=== PATIENT | male | born 1950 | race Caucasian/White ===

== ENCOUNTER 2017-05-09 12:45 | Inpatient (IN) | payer MEDICARE ==
[~2017-05-09] VITALS: Ht 188 cm; Wt 108.2 kg
[2017-05-09] MEDS ORDERED: TIMO5DRO5 OP (13:16)
[2017-05-09] MEDS ORDERED: LISI5TAB7 PO (13:16)
[2017-05-09] MEDS ORDERED: TAMS-11 PO (13:16)
[2017-05-09] MEDS ORDERED: PANT40TA3 PO (13:16)
[2017-05-09] MEDS ORDERED: GATI3.5D2 OP (13:19)
[2017-05-09 13:21] LABS: HEMATOCRIT 34.6 % (39.2-51.8); HEMOGLOBIN 11.9 g/dL (13.7-18.0)
[2017-05-09] MEDS ORDERED: DOCUSATE 100 MG CAPSULE PO PRN (13:30)
[2017-05-09] MEDS ORDERED: PANTOPRAZOLE 80 MG in SODIUM CHLORIDE 0.9% 100 ML IV SCH (13:30)
[2017-05-09] MEDS ORDERED: POLYETHYLENE GLYCOL 17 GM PACKET PO PRN (13:30)
[2017-05-09] MEDS ORDERED: morphine SULFATE 10 MG/ML, 1ML IVPush PRN (13:30)
[2017-05-09] MEDS ORDERED: PANTOPRAZOLE 80 MG in SODIUM CHLORIDE 0.9% 50 ML IV ONE (16:30)
[2017-05-09] MEDS: NS + 20MEQ KCL 1,000 ML IV SCH (16:33)
[2017-05-09 16:34] VITALS: BP 117/80
[2017-05-09] MEDS: SUCRALFATE 1 GM TABLET PO SCH ×2 (17:16→22:55)
[2017-05-09 18:54] VITALS: BP 114/79
[2017-05-09] MEDS: GATIFLOXACIN OP SCH (21:00)
[2017-05-09] MEDS: [UNRECOGNIZED DRUG - OTHER] OP SCH (21:00)
[2017-05-09] MEDS: PREDNISOLONE OP SCH (21:00)
[2017-05-09] MEDS ORDERED: SODIUM CHLORIDE 0.9%, 500ML IVBOLUS ONE (23:00)
[2017-05-09] MEDS: PANTOPRAZOLE 80 MG in SODIUM CHLORIDE 0.9% 100 ML IV SCH (23:34)
[2017-05-10] VITALS (14 sets, daily range): BP systolic 59–148; BP diastolic 42–85
[2017-05-10 04:57] LABS: BLOOD UREA NITROGEN 45 mg/dL (7-18)
[2017-05-10 05:04] LABS: HEMATOCRIT 23.3 % (39.2-51.8); WHITE BLOOD COUNT 14.5 x10^3/uL (3.4-10)
[2017-05-10 05:05] LABS: IS PT STATUS REG ER OR PRE ER? NO
[2017-05-10] MEDS: NS + 20MEQ KCL 1,000 ML IV SCH (06:46)
[2017-05-10] MEDS: SUCRALFATE 1 GM TABLET PO SCH ×4 (07:45→21:00)
[2017-05-10] MEDS: LISINOPRIL 5 MG TABLET PO SCH (07:46)
[2017-05-10] MEDS: TAMSULOSIN 0.4 MG CAP.ER.24H PO SCH (07:46)
[2017-05-10] MEDS: PANTOPRAZOLE 80 MG in SODIUM CHLORIDE 0.9% 100 ML IV SCH ×2 (07:46→18:13)
[2017-05-10] MEDS: GATIFLOXACIN OP SCH ×2 (07:49→21:00)
[2017-05-10] MEDS: PREDNISOLONE OP SCH ×2 (07:49→21:00)
[2017-05-10] MEDS: [UNRECOGNIZED DRUG - OTHER] OP SCH ×2 (07:49→21:00)
[2017-05-10] MEDS: TIMOLOL OPHTH 0.5%, 5ML OP SCH (09:00)
[2017-05-10] MEDS ORDERED: PANTOPROZOLE 40MG TABLET PO SCH (09:00)
[2017-05-10] MEDS ORDERED: MIDAZOLAM 1 MG/ML, 5ML ONE ×2 (10:08)
[2017-05-10] MEDS ORDERED: FENTANYL PF 100 MCG/2ML ONE ×2 (10:08→10:09)
[2017-05-10 17:49] LABS: HEMATOCRIT 25.3 % (39.2-51.8); HEMOGLOBIN 8.4 g/dL (13.7-18.0); WHITE BLOOD COUNT 20.7 x10^3/uL (3.4-10)
[2017-05-10 18:10] LABS: ANISOCYTOSIS 1+
[2017-05-10 18:11] LABS: HYPOCHROMIA 1+; POLYCHROMASIA 1+
[2017-05-10 21:09] LABS: HEMOGLOBIN 7.8 g/dL (13.7-18.0)
[2017-05-10 21:18] LABS: HEMATOCRIT 22.3 % (39.2-51.8)
[2017-05-10] MEDS: ONDANSETRON 2MG/ML, 2ML IVPush PRN (22:40)
[2017-05-11] VITALS (12 sets, daily range): BP systolic 91–116; BP diastolic 60–74
[2017-05-11] MEDS: PANTOPRAZOLE 80 MG in SODIUM CHLORIDE 0.9% 100 ML IV SCH ×2 (04:24→15:22)
[2017-05-11] MEDS: ACETAMINOPHEN 325 MG TABLET PO PRN ×2 (04:36→18:29)
[2017-05-11 04:54] LABS: WHITE BLOOD COUNT 23.3 x10^3/uL (3.4-10)
[2017-05-11 05:01] LABS: HEMATOCRIT 17.9 % (39.2-51.8); HEMOGLOBIN 6.3 g/dL (13.7-18.0)
[2017-05-11 05:46] LABS: ASPARTATE AMINO TRANSFERASE 10 U/L (15-37); BLOOD UREA NITROGEN 59 mg/dL (7-18)
[2017-05-11 05:51] LABS: DIFF TOTAL CELLS COUNTED 200 CELL DIFF; VERIFY COUNTS? YES
[2017-05-11 05:52] LABS: ANISOCYTOSIS 1+
[2017-05-11 05:53] LABS: POLYCHROMASIA 2+
[2017-05-11] MEDS ORDERED: PANTOPRAZOLE 80 MG in SODIUM CHLORIDE 0.9% 50 ML IV ONE (09:00)
[2017-05-11] MEDS: GATIFLOXACIN OP SCH ×2 (09:00→20:19)
[2017-05-11] MEDS: [UNRECOGNIZED DRUG - OTHER] OP SCH ×2 (09:00→20:19)
[2017-05-11] MEDS: PREDNISOLONE OP SCH ×2 (09:00→20:19)
[2017-05-11] MEDS: TAMSULOSIN 0.4 MG CAP.ER.24H PO SCH (10:41)
[2017-05-11] MEDS: SUCRALFATE 1 GM TABLET PO SCH ×4 (10:41→20:19)
[2017-05-11] MEDS: LISINOPRIL 5 MG TABLET PO SCH (10:41)
[2017-05-11] MEDS: TIMOLOL OPHTH 0.5%, 5ML OP SCH (10:57)
[2017-05-11 13:25] LABS: HEMATOCRIT 23.4 % (39.2-51.8); HEMOGLOBIN 8.1 g/dL (13.7-18.0)
[2017-05-11 16:13] LABS: HEMATOCRIT 23.8 % (39.2-51.8); HEMOGLOBIN 8.1 g/dL (13.7-18.0)
[2017-05-11 21:15] LABS: HEMOGLOBIN 7.4 g/dL (13.7-18.0)
[2017-05-11 21:19] LABS: HEMATOCRIT 21.2 % (39.2-51.8)
[2017-05-12] VITALS (15 sets, daily range): BP systolic 97–131; BP diastolic 57–76
[2017-05-12] MEDS: PANTOPRAZOLE 80 MG in SODIUM CHLORIDE 0.9% 100 ML IV SCH ×3 (01:07→22:22)
[2017-05-12 03:20] LABS: HEMATOCRIT 19.6 % (39.2-51.8); HEMOGLOBIN 6.5 g/dL (13.7-18.0)
[2017-05-12] MEDS: HYDROcodone/APAP 5/325 TABLET PO PRN ×2 (04:32→19:51)
[2017-05-12] MEDS: SUCRALFATE 1 GM TABLET PO SCH ×4 (07:00→19:51)
[2017-05-12] MEDS: PREDNISOLONE OP SCH ×2 (09:00→19:51)
[2017-05-12] MEDS: GATIFLOXACIN OP SCH ×2 (09:00→19:51)
[2017-05-12] MEDS: [UNRECOGNIZED DRUG - OTHER] OP SCH ×2 (09:00→19:51)
[2017-05-12] MEDS ORDERED: MIDAZOLAM 1 MG/ML, 5ML ONE (09:11)
[2017-05-12] MEDS ORDERED: FENTANYL PF 100 MCG/2ML ONE (09:11)
[2017-05-12] MEDS: TIMOLOL OPHTH 0.5%, 5ML OP SCH (10:33)
[2017-05-12] MEDS: LISINOPRIL 5 MG TABLET PO SCH (10:34)
[2017-05-12] MEDS: TAMSULOSIN 0.4 MG CAP.ER.24H PO SCH (10:34)
[2017-05-12 12:49] LABS: HEMATOCRIT 23.7 % (39.2-51.8); HEMOGLOBIN 8.1 g/dL (13.7-18.0)
[2017-05-12 16:41] LABS: HEMOGLOBIN 7.5 g/dL (13.7-18.0)
[2017-05-12 16:45] LABS: HEMATOCRIT 22.5 % (39.2-51.8)
[2017-05-12 21:06] LABS: HEMATOCRIT 24.8 % (39.2-51.8); HEMOGLOBIN 8.6 g/dL (13.7-18.0)
[2017-05-12] MEDS: ONDANSETRON 2MG/ML, 2ML IVPush PRN (23:42)
[2017-05-13 03:50] VITALS: BP 111/73
[2017-05-13] MEDS: HYDROcodone/APAP 5/325 TABLET PO PRN (03:59)
[2017-05-13 06:07] LABS: HEMATOCRIT 24.2 % (39.2-51.8); HEMOGLOBIN 8.3 g/dL (13.7-18.0); WHITE BLOOD COUNT 9.6 x10^3/uL (3.4-10)
[2017-05-13 06:26] LABS: DIFF TOTAL CELLS COUNTED 100 CELL DIFF
[2017-05-13 06:28] LABS: ANISOCYTOSIS 1+; POLYCHROMASIA 2+; VERIFY COUNTS? YES
[2017-05-13 06:41] LABS: BLOOD UREA NITROGEN 21 mg/dL (7-18)
[2017-05-13 06:49] VITALS: BP 98/62
[2017-05-13] MEDS: TIMOLOL OPHTH 0.5%, 5ML OP SCH (08:06)
[2017-05-13] MEDS: PANTOPRAZOLE 80 MG in SODIUM CHLORIDE 0.9% 100 ML IV SCH ×2 (08:06→21:13)
[2017-05-13] MEDS: TAMSULOSIN 0.4 MG CAP.ER.24H PO SCH (08:07)
[2017-05-13] MEDS: LISINOPRIL 5 MG TABLET PO SCH (08:07)
[2017-05-13] MEDS: SUCRALFATE 1 GM TABLET PO SCH ×4 (08:07→20:30)
[2017-05-13] MEDS: GATIFLOXACIN OP SCH ×2 (08:08→20:31)
[2017-05-13] MEDS: [UNRECOGNIZED DRUG - OTHER] OP SCH ×2 (08:08→20:31)
[2017-05-13] MEDS: PREDNISOLONE OP SCH ×2 (08:08→20:31)
[2017-05-13 09:56] VITALS: BP 109/65
[2017-05-13 11:19] LABS: HEMATOCRIT 25.6 % (39.2-51.8); HEMOGLOBIN 8.7 g/dL (13.7-18.0)
[2017-05-13 13:25] LABS: IS PT STATUS REG ER OR PRE ER? NO
[2017-05-13 14:33] VITALS: BP 112/72
[2017-05-13 16:37] LABS: HEMATOCRIT 26.2 % (39.2-51.8); HEMOGLOBIN 8.8 g/dL (13.7-18.0)
[2017-05-13 18:53] VITALS: BP 116/66
[2017-05-13 19:23] LABS: IS PT STATUS REG ER OR PRE ER? NO
[2017-05-13 21:22] LABS: HEMATOCRIT 25.1 % (39.2-51.8); HEMOGLOBIN 8.5 g/dL (13.7-18.0)
[2017-05-13] MEDS: ACETAMINOPHEN 325 MG TABLET PO PRN (23:13)
[2017-05-13 23:37] LABS: IS PT STATUS REG ER OR PRE ER? NO
[2017-05-14 01:16] VITALS: BP 148/77
[2017-05-14 06:16] LABS: HEMATOCRIT 25.3 % (39.2-51.8); HEMOGLOBIN 8.6 g/dL (13.7-18.0); WHITE BLOOD COUNT 7.5 x10^3/uL (3.4-10)
[2017-05-14 06:50] LABS: BLOOD UREA NITROGEN 18 mg/dL (7-18)
[2017-05-14] MEDS: PREDNISOLONE OP SCH ×2 (07:34→20:06)
[2017-05-14] MEDS: SUCRALFATE 1 GM TABLET PO SCH ×4 (07:34→20:05)
[2017-05-14] MEDS: [UNRECOGNIZED DRUG - OTHER] OP SCH ×2 (07:34→20:06)
[2017-05-14] MEDS: LISINOPRIL 5 MG TABLET PO SCH (07:34)
[2017-05-14] MEDS: GATIFLOXACIN OP SCH ×2 (07:34→20:06)
[2017-05-14] MEDS: TAMSULOSIN 0.4 MG CAP.ER.24H PO SCH (07:34)
[2017-05-14] MEDS: TIMOLOL OPHTH 0.5%, 5ML OP SCH (07:35)
[2017-05-14] MEDS: PANTOPRAZOLE 80 MG in SODIUM CHLORIDE 0.9% 100 ML IV SCH (07:36)
[2017-05-14 08:22] VITALS: BP 126/82
[2017-05-14 11:05] LABS: HEMATOCRIT 28.9 % (39.2-51.8); HEMOGLOBIN 9.7 g/dL (13.7-18.0)
[2017-05-14 13:21] VITALS: BP 121/72
[2017-05-14 16:33] LABS: HEMOGLOBIN 9.6 g/dL (13.7-18.0)
[2017-05-14] MEDS: OMEPRAZOLE 20 MG CAPSULE.DR PO SCH (16:42)
[2017-05-14 19:46] VITALS: BP 139/66
[2017-05-14 21:43] LABS: HEMATOCRIT 28.5 % (39.2-51.8); HEMOGLOBIN 9.6 g/dL (13.7-18.0)
[2017-05-15 01:19] VITALS: BP 134/87
[2017-05-15] MEDS: ACETAMINOPHEN 325 MG TABLET PO PRN ×2 (01:27→23:03)
[2017-05-15 05:38] LABS: HEMATOCRIT 25.9 % (39.2-51.8); HEMOGLOBIN 8.9 g/dL (13.7-18.0); WHITE BLOOD COUNT 7.1 x10^3/uL (3.4-10)
[2017-05-15 05:46] LABS: BLOOD UREA NITROGEN 15 mg/dL (7-18)
[2017-05-15 07:33] VITALS: BP 122/74
[2017-05-15] MEDS: SUCRALFATE 1 GM TABLET PO SCH ×4 (07:55→20:19)
[2017-05-15] MEDS: OMEPRAZOLE 20 MG CAPSULE.DR PO SCH ×2 (07:55→16:38)
[2017-05-15] MEDS: GATIFLOXACIN OP SCH ×2 (09:00→20:19)
[2017-05-15] MEDS: PREDNISOLONE OP SCH ×2 (09:00→20:19)
[2017-05-15] MEDS: [UNRECOGNIZED DRUG - OTHER] OP SCH ×2 (09:00→20:19)
[2017-05-15] MEDS: TAMSULOSIN 0.4 MG CAP.ER.24H PO SCH (09:19)
[2017-05-15] MEDS: LISINOPRIL 5 MG TABLET PO SCH (09:19)
[2017-05-15] MEDS: TIMOLOL OPHTH 0.5%, 5ML OP SCH (09:20)
[2017-05-15 12:26] VITALS: BP 137/88
[2017-05-15 12:41] LABS: HEMATOCRIT 29.8 % (39.2-51.8); HEMOGLOBIN 10.1 g/dL (13.7-18.0)
[2017-05-15] MEDS: OPIUM/BELLADONNA SUPP.RECT 16.2-30 MG PR PRN ×2 (13:03→18:31)
[2017-05-15] MEDS: HYDROCORTISONE 25 MG SUPP PR SCH ×2 (14:41→21:02)
[2017-05-15 18:04] LABS: HEMATOCRIT 31.8 % (39.2-51.8); HEMOGLOBIN 10.5 g/dL (13.7-18.0)
[2017-05-15 19:57] VITALS: BP 127/78
[2017-05-15] MEDS: DIPHENHYDRAMINE 25 MG CAPSULE PO PRN (20:19)
[2017-05-15] MEDS ORDERED: HYDROCORTISONE 25 MG SUPP PR SCH (21:00)
[2017-05-15 21:23] LABS: HEMATOCRIT 26.9 % (39.2-51.8); HEMOGLOBIN 8.9 g/dL (13.7-18.0)
[2017-05-16 02:55] VITALS: BP 106/66
[2017-05-16] MEDS: DIPHENHYDRAMINE 25 MG CAPSULE PO PRN ×2 (04:59→16:04)
[2017-05-16 05:20] LABS: BLOOD UREA NITROGEN 14 mg/dL (7-18); HEMATOCRIT 25.8 % (39.2-51.8); HEMOGLOBIN 8.7 g/dL (13.7-18.0); WHITE BLOOD COUNT 7.4 x10^3/uL (3.4-10)
[2017-05-16] MEDS: HYDROcodone/APAP 5/325 TABLET PO PRN ×4 (08:15→17:35)
[2017-05-16] MEDS: SUCRALFATE 1 GM TABLET PO SCH ×4 (08:15→20:22)
[2017-05-16] MEDS: OMEPRAZOLE 20 MG CAPSULE.DR PO SCH ×2 (08:15→16:17)
[2017-05-16 08:16] VITALS: BP 145/94
[2017-05-16] MEDS: [UNRECOGNIZED DRUG - OTHER] OP SCH ×2 (09:00→20:21)
[2017-05-16] MEDS: PREDNISOLONE OP SCH ×2 (09:00→20:21)
[2017-05-16] MEDS: GATIFLOXACIN OP SCH ×2 (09:00→20:21)
[2017-05-16] MEDS: LISINOPRIL 5 MG TABLET PO SCH (09:38)
[2017-05-16] MEDS: TAMSULOSIN 0.4 MG CAP.ER.24H PO SCH (09:38)
[2017-05-16] MEDS: TIMOLOL OPHTH 0.5%, 5ML OP SCH (09:38)
[2017-05-16 11:51] LABS: HEMATOCRIT 28.1 % (39.2-51.8); HEMOGLOBIN 9.5 g/dL (13.7-18.0)
[2017-05-16] MEDS: HYDROCORTISONE 25 MG SUPP PR SCH ×2 (12:38→20:22)
[2017-05-16 14:57] VITALS: BP 105/62
[2017-05-16] MEDS ORDERED: HYDROCORTISONE CRM 0.5%, 30GM TP SCH (16:00)
[2017-05-16] MEDS ORDERED: HYDROCORTISONE CRM 0.5%, 30GM TP PRN (16:30)
[2017-05-16] MEDS: HYDROCORTISONE OINT 0.5%, 30GM TP PRN (17:35)
[2017-05-16 19:19] LABS: HEMOGLOBIN 9.4 g/dL (13.7-18.0)
[2017-05-16] MEDS ORDERED: DOCUSATE 100 MG CAPSULE PO PRN (20:00)
[2017-05-16] MEDS ORDERED: POLYETHYLENE GLYCOL 17 GM PACKET PO PRN (20:00)
[2017-05-16] MEDS ORDERED: DIPHENHYDRAMINE 25 MG CAPSULE PO PRN (20:00)
[2017-05-16] MEDS ORDERED: ACETAMINOPHEN 325 MG TABLET PO PRN (20:00)
[2017-05-16 20:09] VITALS: BP 112/70
[2017-05-17 00:10] VITALS: BP 124/75
[2017-05-17] MEDS: HYDROcodone/APAP 5/325 TABLET PO PRN ×5 (00:15→20:45)
[2017-05-17 05:30] LABS: HEMATOCRIT 26.2 % (39.2-51.8); HEMOGLOBIN 8.8 g/dL (13.7-18.0); WHITE BLOOD COUNT 6.9 x10^3/uL (3.4-10)
[2017-05-17 05:34] LABS: BLOOD UREA NITROGEN 14 mg/dL (7-18)
[2017-05-17] MEDS: SUCRALFATE 1 GM TABLET PO SCH ×4 (07:43→20:46)
[2017-05-17] MEDS: OMEPRAZOLE 20 MG CAPSULE.DR PO SCH ×2 (07:43→16:50)
[2017-05-17] MEDS: HYDROCORTISONE OINT 0.5%, 30GM TP PRN (07:54)
[2017-05-17 08:05] VITALS: BP 146/91
[2017-05-17] MEDS: GATIFLOXACIN OP SCH ×2 (09:00→20:46)
[2017-05-17] MEDS: PREDNISOLONE OP SCH ×2 (09:00→20:46)
[2017-05-17] MEDS: [UNRECOGNIZED DRUG - OTHER] OP SCH ×2 (09:00→20:46)
[2017-05-17] MEDS: TAMSULOSIN 0.4 MG CAP.ER.24H PO SCH (09:06)
[2017-05-17] MEDS: TIMOLOL OPHTH 0.5%, 5ML OP SCH (09:06)
[2017-05-17] MEDS: LISINOPRIL 5 MG TABLET PO SCH (09:06)
[2017-05-17] MEDS: HYDROCORTISONE 25 MG SUPP PR SCH ×2 (09:07→20:46)
[2017-05-17] MEDS: DIPHENHYDRAMINE/ZINC CRM 2%, 30GM TP PRN ×2 (10:36→20:43)
[2017-05-17 10:52] LABS: HEMATOCRIT 29.1 % (39.2-51.8); HEMOGLOBIN 9.8 g/dL (13.7-18.0)
[2017-05-17 16:00] VITALS: BP 128/81
[2017-05-17 19:05] VITALS: BP 144/83
[2017-05-17 19:07] LABS: HEMOGLOBIN 9.2 g/dL (13.7-18.0)
[2017-05-17] MEDS: HEMORRHOIDAL OINT, 28 GM (PREP H) RC PRN (20:45)
[2017-05-18 02:20] VITALS: BP 135/77
[2017-05-18 06:13] LABS: BLOOD UREA NITROGEN 13 mg/dL (7-18)
[2017-05-18 06:16] LABS: HEMATOCRIT 27.7 % (39.2-51.8); HEMOGLOBIN 9.2 g/dL (13.7-18.0); WHITE BLOOD COUNT 6.7 x10^3/uL (3.4-10)
[2017-05-18 07:30] VITALS: BP 145/76
[2017-05-18] MEDS: PREDNISOLONE OP SCH (08:26)
[2017-05-18] MEDS: [UNRECOGNIZED DRUG - OTHER] OP SCH (08:26)
[2017-05-18] MEDS: GATIFLOXACIN OP SCH (08:26)
[2017-05-18] MEDS: LISINOPRIL 5 MG TABLET PO SCH (08:28)
[2017-05-18] MEDS: OMEPRAZOLE 20 MG CAPSULE.DR PO SCH ×2 (08:28→17:00)
[2017-05-18] MEDS: TAMSULOSIN 0.4 MG CAP.ER.24H PO SCH (08:28)
[2017-05-18] MEDS: TIMOLOL OPHTH 0.5%, 5ML OP SCH (08:29)
[2017-05-18] MEDS: SUCRALFATE 1 GM TABLET PO SCH ×3 (08:29→17:00)
[2017-05-18] MEDS: HYDROCORTISONE 25 MG SUPP PR SCH (08:30)
[2017-05-18] MEDS: HEMORRHOIDAL OINT, 28 GM (PREP H) RC PRN (08:30)
[2017-05-18] MEDS: HYDROcodone/APAP 5/325 TABLET PO PRN ×2 (08:38→14:13)
[2017-05-18] MEDS ORDERED: GADOBUTROL 10 MMOL/10 ML PFS ONE (14:14)
[2017-05-18 14:40] VITALS: BP 119/77
[2017-05-18] MEDS ORDERED: OMEP-110 PO (15:33)
[2017-05-18] MEDS ORDERED: SUCR1TAB33 PO (15:33)
[2017-05-18] MEDS ORDERED: DIPH28CR5 TP (15:33)
[2017-05-18] MEDS ORDERED: HYDR28.33 TP (15:33)
[2017-05-18] MEDS ORDERED: HYDR25SU3 PR (15:33)
[2017-05-18] MEDS ORDERED: HYDR-3240 PO (15:33)
== END 2017-05-18 17:36 | disposition home or self-care (01) | DRG 377 ==
LOC: SUATTDRO 13:10 → ED 14:44 → EDIP 15:00 → 5SO 15:23
PROVIDERS: ADMIT Family Medicine; ATTEND Internal Medicine
PROC: 30233N1 Transfusion of Nonautologous Red Blood Cells into Peripheral Vein, Percutaneous Approach (ICD-10-PCS; 2017-05-10)
PROC: 30233N1 Transfusion of Nonautologous Red Blood Cells into Peripheral Vein, Percutaneous Approach (ICD-10-PCS; 2017-05-10)
PROC: 0DB78ZX Excision of Stomach, Pylorus, Via Natural or Artificial Opening Endoscopic, Diagnostic (ICD-10-PCS; principal; 2017-05-10 11:30)
PROC: 0W3P8ZZ Control Bleeding in Gastrointestinal Tract, Via Natural or Artificial Opening Endoscopic (ICD-10-PCS; 2017-05-12)
PROC: 30233N1 Transfusion of Nonautologous Red Blood Cells into Peripheral Vein, Percutaneous Approach (ICD-10-PCS; 2017-05-12)
DX: K26.4 Chronic or unspecified duodenal ulcer with hemorrhage (principal); E43 Unspecified severe protein-calorie malnutrition; I48.0 Paroxysmal atrial fibrillation; I82.622 Acute embolism and thrombosis of deep veins of left upper extremity; E83.42 Hypomagnesemia; K22.2 Esophageal obstruction; I48.2 Chronic atrial fibrillation; Z94.7 Corneal transplant status; D62 Acute posthemorrhagic anemia; I80.9 Phlebitis and thrombophlebitis of unspecified site; Z68.30 Body mass index [BMI] 30.0-30.9, adult; H40.9 Unspecified glaucoma; I10 Essential (primary) hypertension; I35.8 Other nonrheumatic aortic valve disorders; I95.1 Orthostatic hypotension; K21.9 Gastro-esophageal reflux disease without esophagitis; K25.4 Chronic or unspecified gastric ulcer with hemorrhage; K29.50 Unspecified chronic gastritis without bleeding; K44.9 Diaphragmatic hernia without obstruction or gangrene; K62.3 Rectal prolapse; K64.4 Residual hemorrhoidal skin tags; K64.5 Perianal venous thrombosis; N40.0 Benign prostatic hyperplasia without lower urinary tract symptoms; Z79.899 Other long term (current) drug therapy; Z82.49 Family history of ischemic heart disease and other diseases of the circulatory system; Z87.11 Personal history of peptic ulcer disease; Z90.49 Acquired absence of other specified parts of digestive tract; Z95.0 Presence of cardiac pacemaker; I35.1 Nonrheumatic aortic (valve) insufficiency
CPT/HCPCS: 36415; 80048; 80053; 80076; 81003; 83735; 84100; 84484; 85014; 85018; 85025; 85610; 86850; 86900; 86923; 88305; 93005; 93306; 93880; 99152; 99153; A9585; J2250; J2405; J3010; J3480; C9113; J2270; J7040; P9016; Q0163